=== PATIENT | female | born 1930 | race Caucasian/White ===

== ENCOUNTER 2016-09-06 08:22 | Outpatient (CLI) | payer MEDICARE, OTHER | END 2016-09-06 08:23 | disposition home or self-care (01) | DX: I10 Essential (primary) hypertension (principal) ==

== ENCOUNTER 2016-11-06 13:11 | Outpatient (CLI) | payer MEDICARE, OTHER | END 2016-11-06 13:12 | disposition home or self-care (01) | DX: I10 Essential (primary) hypertension (principal); R73.9 Hyperglycemia, unspecified ==

== ENCOUNTER 2017-05-09 15:07 | Outpatient (CLI) | payer MEDICARE, OTHER ==
[2017-05-09 12:22] LABS: BASOPHILS % (AUTO) 0.3 %; EOSINOPHILS # (AUTO) 0.2 10^3/uL (0.0-0.7); EOSINOPHILS % (AUTO) 2.8 %; HCT - HEMATOCRIT 40.2 % (37.0-47.0); HGB - HEMOGLOBIN 13.9 g/dL (12.0-16.0); LYMPHOCYTES # (AUTO) 2.3 10^3/uL (1.5-3.5); LYMPHOCYTES % (AUTO) 34.7 %; MEAN CORPUSCULAR HEMOGLOBIN 31.8 pg (27.0-31.0); MEAN CORPUSCULAR HGB CONC 34.7 g/dL (32.0-36.0); MEAN CORPUSCULAR VOLUME 91.7 fL (81.0-99.0); MEAN PLATELET VOLUME 7.5 fL (7.9-10.8); MONOCYTES # (AUTO) 0.6 10^3/uL (0.0-1.0); MONOCYTES % (AUTO) 8.3 %; NEUTROPHILS # (AUTO) 3.6 10^3/uL (1.5-6.6); NEUTROPHILS % (AUTO) 53.9 %; NUCLEATED RED BLOOD CELLS AUTO 0.1 /100WBC; RED BLOOD COUNT 4.38 10^6/uL (4.20-5.40); RED CELL DISTRIBUTION WIDTH 13.2 % (12.0-15.0); UNCORRECTED WHITE BLOOD COUNT 6.7 x10^3/uL; WHITE BLOOD COUNT 6.7 x10^3/uL (4.8-10.8)
[2017-05-09 12:31] LABS: ALBUMIN/GLOBULIN RATIO 1.1 (1.0-2.2); BILIRUBIN,TOTAL 0.5 mg/dL (0.2-1.0); CALCIUM 9.5 mg/dL (8.5-10.3); CREATININE 1.2 mg/dL (0.4-1.0); TOTAL PROTEIN 7.4 g/dL (6.7-8.2)
== END 2017-05-09 15:08 | disposition home or self-care (01) ==
LOC: LAB.WCP 15:07
PROVIDERS: ATTEND Family Medicine
DX: I10 Essential (primary) hypertension (principal)
CPT/HCPCS: 36415; 80053; 85025